=== PATIENT | female | born 1990 | race Caucasian/White ===

== ENCOUNTER → 2019-10-26 08:06 | Outpatient (BNVA) | payer BC, SELFPAY | PROVIDERS: Family Provider Family Medicine; Visit Provider Obstetrics & Gynecology | DX: R87.613 High grade squamous intraepithelial lesion on cytologic smear of cervix (HGSIL) (principal) | CPT/HCPCS: 88305 ==

== ENCOUNTER 2020-08-20 20:30 | Emergency (ER) | payer SELFPAY ==
--- NOTE | 2020-08-20 20:34 | XR_ITS ---
WS: [id number] Exam: XR ankle LT min 3V* [id number] Date/Time of Exam: 08/20/2020 8:34 PM Reason For Exam: left ankle pain s/p fall Comparison 08/20/2020. Again noted is a trimalleolar fracture of the left ankle with the medial subluxation of the tibia upo n the talar dome. No significant positional change. Soft tissue swelling about the ankle. XR/XR ankle LT min 3V* [id number] IMPRESSION: 1. Trimalleolar fracture or subluxation showing no positional change since the prior study.
[2020-08-20 20:56] VITALS: BP 124/84; PULSE 78; RESP 20; TEMP 36.8; O2SAT 99; BMI 42.0
--- NOTE | 2020-08-20 21:07 | W.ED.EXTPRO ---
HPI - Extremity Problem General: Chief complaint: Extremity Injury, Lower Stated complaint: FELL ON ICE/INJURED L ANKLE Time Seen by Provider: 08/20/20 20:34 Source: patient Mode of arrival: ambulatory Limitations: no limitations History of Present Illness: HPI Narrative: 30-year-old female patient presents to the emergency department with left ankle pain. She states prior to arrival, was walking in the yard when she slipped on wet snow, left ankle hyperflexion, top of my foot touched my levy , she reports not able to ambulate on the left ankle, denies left foot pain or other injuries. MD Complaint: extremity pain, extremity swelling and joint swelling Pain Consistency: constant Location: left and lower extremity Severity scale (1-10): 6 Quality: aching and constant Relieving factors: immobilization Exacerbating factors: range of motion, weight bearing and walking Associated symptoms: Reports no associated symptoms; Deny chest pain, fever(s) or rash Review of Systems General: Reports: 10 or more systems reviewed and unremarkable except in HPI and below Const: Denies: fever(s), chills or diaphoresis Eyes: Denies: blurry vision or eye redness ENMT: Denies: throat pain, dental pain or disequilibrium Card: Denies: chest pain, palpitations or irregular heart rhythm Resp: Denies: dyspnea, productive cough, non-productive cough or wheezing GI: Denies: abdominal pain, nausea or vomiting : Denies: difficulty voiding or dysuria Musc: Reports: joint pain, joint swelling and joint stiffness; Denies: neck pain or back pain Skin/Breast: Denies: rash or pruritus Neuro: Denies: headache(s), weakness in extremities or behavioral changes Psych: Denies: anxiety or depression Cisco/Lymph: Denies: easy bruising COUNTS INCLUDE 234 BEDS AT THE [facility] ED PFSH: Medical History (Updated 08/20/20 @ 22:28 by TENISHA Mckenzie) No significant past medical history Surgical History History of tonsillectomy and adenoidectomy Family History Mother Diabetes Hypercholesteremia Grandmother Uterine cancer maternal Family/Other Uterine cancer maternal Father Hypertension Grandfather Hypertension paternal Social History (Reviewed 08/20/20 @ 21:08 by ABEL Mckenzie Smoking and tobacco status: never smoked Alcohol intake: current Alcohol intake frequency: few times a month Female Reproductive History: Date of last menstrual period: 07/27/20 Physical Exam Const: COMMON NORMALS: no acute distress, patient oriented x3, no limitations, healthy appearing and alert GENERAL APPEARANCE: cooperative, well kempt, well developed and well hydrated; not ill appearing NUTRITIONAL APPEARANCE: overweight ORIENTATION/CONSCIOUSNESS: Yes awake, Yes oriented to person, Yes oriented to place and Yes oriented to time HENMT: COMMON NORMALS: normocephalic, atraumatic, EAC's normal, Normal external nose present and moist oral mucous membranes HEAD & SCALP: normocephalic and atraumatic FACE & SINUS: normal facial exam and face symmetric NOSE: Normal external nose present EXTERNAL AUDITORY CANAL: EAC's normal Eye: COMMON NORMALS: Equal, round and reactive pupils present, EOMs intact bilaterally and conjunctivae normal GENERAL EYE: appearance normal, both eyes and all related structures PERIORBITAL: periorbital findings normal EYELID: eyelids normal CONJUNCTIVA: Yes conjunctivae normal PUPIL: Yes Equal, round and reactive pupils present Neck/C-Spine: COMMON NORMALS: full ROM, no lymphadenopathy and supple GENERAL: Yes normal visual inspection and Yes trachea midline CERVICAL SPINE: Yes cervical ROM normal, No pain with cervical ROM, No Cervical spine tenderness and No Paracervical muscle tenderness Lymph: LYMPHATIC: no lymphadenopathy noted Chest: COMMONS NORMALS: normal inspection of the chest and normal palpation of entire chest wall CHEST: No localized rib tenderness with anteroposterior compression Resp: COMMON NORMALS: normal respiratory effort, No retractions, No use of accessory muscles and clear to auscultation bilaterally EFFORT & INSPECTION: Yes able to speak in complete sentences and Yes symmetric chest movement AUSCULTATION: clear to auscultation bilaterally Cardio: COMMON NORMALS: regular rate, regular rhythm, S1 normal heart sound present, S2 normal heart sound present and Peripheral pulses 2+ throughout RATE: regular rate RHYTHM: regular rhythm HEART SOUNDS: S1 normal heart sound present and S2 normal heart sound present PERIPHERAL PULSES: Peripheral pulses 2+ throughout GI: COMMON NORMALS: Normal to inspection, nondistended, normoactive bowel sounds present, Soft to palpation and non-tender INSPECTION: Yes normal to inspection PALPATION: Yes Soft to palpation : COMMON NORMALS: Yes no CVA tenderness BLADDER/KIDNEY EXAM: Yes no CVA tenderness Back/Pelvis: COMMON NORMALS: no CVA tenderness, thoracic and lumbar spine normal to inspection, no thoracic nor lumbar tenderness, thoraco-lumbar ROM normal and straight leg raise negative bilaterally Extremity: COMMON NORMALS: normal to inspection, capillary refill normal, no clubbing, cyanosis or edema, no calf tenderness and no pedal edema GENERAL: Yes normal exam except as noted LEFT LOWER EXTREMITY: Yes ankle joint Left ankle: Yes inspection (deformity of the left medial malleolus, edema and swelling of the joint), Yes palpation (pain of the left medial malleolus), Yes ROM (dorsi-flexion/extension limited due to pain, not able to invert) and Yes neurovascular exam (distally intact) Neuro: COMMON NORMALS: patient oriented x3 and no focal motor deficits SENSORIUM/ORIENTATION: Yes alert, Yes oriented to person, Yes oriented to place and Yes oriented to time Psych: COMMON NORMALS: mental status grossly normal, Normal thought process present and cooperative APPEARANCE: Yes well kempt ACTIVITY/MOTOR BEHAVIOR: Yes appropriate eye contact THOUGHT PROCESS: Normal thought process present Skin: COMMON NORMALS: no rashes or lesions noted and turgor normal GENERAL SKIN EXAM: no rashes or lesions noted and turgor normal Procedures Orthopedic Splinting/Casting Injury #1: Side: left Lower Extremity Injury Location: lower leg, ankle and foot Lower Extremity Immobilizer: posterior splint, stirrup splint and Arnoldo wrap Other Orthopedic Equipment: crutches Additional Comments: n/v distally intact w/o deficit Course Vital Signs: Vital signs: Vital Signs Temperature 98.2 F 08/20/20 20:56 Pulse Rate 71 08/20/20 22:49 Respiratory Rate 20 H 08/20/20 21:53 Blood Pressure 125/77 08/20/20 22:49 Pulse Oximetry 97 08/20/20 22:49 MDM - Extremity (Nontraumatic) MDM Narrative: Medical decision making narrative: 30-year-old female patient presents to the emergency department with trimalleolar fracture of the left lower extremity. Case was discussed as well as radiology films reviewed with Dr. Bernard. Recommendation to administer fentanyl and Zofran so appropriate positioning of the left ankle with splinting can be completed with decreased pain. Splint was applied with ankle/foot at 90 degrees, she was able to tolerate positioning and splint placement. Social service referral for orthopedic management placed. She was advised no weightbearing, prescription of hydrocodone signed by Dr. Bernard. Discharge Plan Discharge Patient Disposition: Home Clinical Impression: Fall Qualifiers: Encounter type: initial encounter Qualified Code(s): W19.XXXA - Unspecified fall, initial encounter Trimalleolar fracture of ankle, closed Qualifiers: Encounter type: initial encounter Laterality: left Qualified Code(s): S82.852A - Displaced trimalleolar fracture of left lower leg, initial encounter for closed fracture Condition: Stable Prescriptions: New hydrocodone-acetaminophen 5-325 mg tablet 1 tab PO Q4H PRN (Reason: pain) Qty: 10 RF: 0 No Action norethindrone (contraceptive) [Ortho Micronor] 0.35 mg tablet 0.35 mg PO DAILY RF: 0 Discharge Orders: Discharge ED (Routine); Ordered 08/20/20 Ordered By: Nivia Heredia Referrals: Jas Meade MD [Primary Care Provider] - Discharge Diet: Usual diet Discharge Activity: Limit activity as instructed Patient Instructions: Ankle Fracture (ED), Crutch Instructions (ED), Splint Care (ED), Opioid Safety Activity Restrictions/Additional Instructions: Keep left lower extremity elevated as much as possible, this will help with swelling and pain Take pain medication with food to avoid stomach upset Pain medication prescribed may cause constipation, stool softener/laxative may be needed accounting advisory services manager will be contacting you with follow-up appointment with orthopedic specialty Keep ice, cool compresses to the left lower extremity to help reduce swelling No weightbearing on the left lower extremity until cleared by orthopedic specialty Stand Alone Forms: Work/School Release Coding Level of Care Code ED It Sales Executive for Rafat Fwd Exam Comprehensive
[2020-08-20] MEDS: HYDROcodone-acetaminophen 5-325 mg Tablet 1 TAB PO ×2 (21:23→22:39)
[2020-08-20 21:53] VITALS: RESP 20; O2SAT 98
[2020-08-20] MEDS: fentaNYL 50 mcg/mL INJ 2mL 100 MCG IVP (21:53)
[2020-08-20] MEDS: ondansetron 2 mg/ML SDV 2 mL 4 MG IVP (21:54)
[2020-08-20 22:46] VITALS: BP 125/77; PULSE 72; O2SAT 98
[2020-08-20 22:49] VITALS: BP 125/77; PULSE 71; O2SAT 97
--- NOTE | 2020-08-21 08:59 | DCPLANNER ---
[employer] had message to schedule a follow up appointment for patient with ortho. unit manager [employer] called the ortho clinic, spoke with Gayathri, gave clinic patients information. unit manager [employer] was told that patients information would be printed and reviewed. Clinic will call patient with appointment information.
--- NOTE | 2020-08-22 07:49 | DCPLANNER ---
Patient has a follow up appointment scheduled for Saturday, August 22, 2020 at 2:[address] Ordaz at ortho. Clinic will call patient with appointment information.
--- NOTE | 2020-09-04 08:10 | DCPLANNER ---
Patient had a follow up appointment scheduled for 08.22.[address] Ordaz at ortho - patient attended appointment.
== END 2020-08-20 22:51 | disposition home or self-care (01) ==
PROVIDERS: Emergency Provider Nurse Practitioner Family; PCP Family Medicine
DX: S82.852A Displaced trimalleolar fracture of left lower leg, initial encounter for closed fracture (principal); W00.0XXA Fall on same level due to ice and snow, initial encounter
CPT/HCPCS: 29515; 73610; 96374; 96375; 99283; E0114; J2405; J3010

== ENCOUNTER → 2020-08-22 15:15 | Outpatient (BNVA) | payer OTHER, SELFPAY | PROVIDERS: PCP Family Medicine; Visit Provider Orthopaedic Surgery | DX: Z11.52 Encounter for screening for COVID-19 (principal); S82.852D Displaced trimalleolar fracture of left lower leg, subsequent encounter for closed fracture with routine healing; X58.XXXD Exposure to other specified factors, subsequent encounter | CPT/HCPCS: 87635 ==

== ENCOUNTER 2020-08-25 06:00 | Day surgery (SDC) | payer SELFPAY ==
[2020-08-24 14:06] VITALS: BMI 42.0
[2020-08-25] VITALS (9 sets, daily range): BP systolic 110–133; BP diastolic 74–91; PULSE 76–94; RESP 12–20; TEMP 36.1–36.7; O2SAT 96–98
--- NOTE | 2020-08-25 | XR_ITS ---
WS: [id number] Exam: XR ankle LT min 3V* [id number] Date/Time of Exam: 08/25/2020 12:00 AM Reason For Exam: ORIF LEFT ANKLE Intraoperative C-arm images of the left ankle in the lateral and AP projections are submitted for demetri luation. There is plate and screw fixation involving a fracture of the lower fibula that is stabilized in sati sfactory alignment for healing. 2 screws also stabilize a fracture of the medial malleolus in good al ignment. A posterior tibial shelf fracture is partially visualized and does not appear to comprise a significant part of the articulating surface. Postoperative changes in the adjacent soft tissues. XR/XR ankle LT min 3V* [id number] IMPRESSION: 1. Satisfactory internal orthopedic fixation involving fractures of the medial malleolus and distal fibula. 2. Small partially visualized posterior tibial shelf fracture.
--- NOTE | 2020-08-25 | SCC_ITS ---
Procedure Done: Open reduction internal fixation of left trimalleolar ankle fracture 50.3 seconds of fluoroscopic guidance, for a cumulative dose of 1.36 mGy, was provided to Dr. Ordaz by the radiology department. C-arm images of the LEFT ankle were saved for the patient's permanent record. [facility]
--- NOTE | 2020-08-25 06:21 | PC.NURSE ---
PT STATED SHE HAS TAKEN KEFLEX WITH NO ALLERGIC REACTION.
--- NOTE | 2020-08-25 06:33 | ANES.PREANE2 ---
Pre-Anesthetic Assessment Pre-Anesthetic Assessment: Height/Weight: Height 1.63 m Weight 111.13 kg Temp Pulse Resp BP Pulse Ox 97 F L 87 18 122/86 97 08/25/20 06:19 08/25/20 06:19 08/25/20 06:19 08/25/20 06:19 08/25/20 06:19 Preop Diagnosis: left trimallelar ankle fracture Proposed Procedure: Operation Date: 08/25/20 07:00 Proposed Procedures p ORIF left Ankle s82.853a [id number](Left) - Dylan Ordaz, DO Was Beta Merrill taken within 24 hours: N/A Last intake: Intake Last Liquid Date 08/24/20 Last Liquid Time 21:00 Last Solid Date 08/24/20 Last Solid Time 21:00 Social: Social History: No alcohol and No tobacco Exam: Pre-Anes Outpt Exam: alert, oriented x 3, clear to auscultation bilaterally and regular rate & rhythm Airway: Submandibular: WNL Cervical ROM: WNL MP: 2 Dentition: Full Metabolic: Metabolic: Morbid obesity Anesthetic Plan: ASA status: 2 Anesthesia: General Risk of > 500 ml blood loss (7ml/kg in children): No PFSH Anesthesia PFSH: Medical History No significant past medical history Surgical History History of tonsillectomy and adenoidectomy Family History Mother Diabetes Hypercholesteremia Grandmother Uterine cancer maternal Family/Other Uterine cancer maternal Father Hypertension Grandfather Hypertension paternal Social History Smoking and tobacco status: never smoked Alcohol intake: current Alcohol intake frequency: few times a month Female Reproductive History: Date of last menstrual period: 07/27/20 Data Anesthesia Cardiac Studies: No Data to Display
--- NOTE | 2020-08-25 06:42 | W.PM.OPSUD ---
Surgery/Procedure H&P Update DATE OF PROCEDURE: August 25, 2020 DATE H&P PERFORMED: 08/22/20 H&P UPDATE INFORMATION: I have reviewed H&P completed within last 30 days, I have examined patient prior to procedure and No changes to prior documentation PREOP DIAGNOSIS: left trimallelar ankle fracture PLANNED PROCEDURE: Operation Date: 08/25/20 07:00 Proposed Procedures p ORIF left Ankle s82.853a [id number](Left) - Dylan Ordaz DO
[2020-08-25] MEDS: sodium chloride 0.9% 1,000 ML 30 ML IV (06:45)
[2020-08-25] MEDS: clindamycin 600 MG/50 ML PREMIX 100 MG IV (07:00)
[2020-08-25] MEDS: fentaNYL 50 mcg/mL INJ 2mL IVP ×2 (07:05→09:05)
--- NOTE | 2020-08-25 08:20 | P.OP_ITS ---
Operative Report Date of procedure: August 25, 2020 Pre-op Diagnosis: left trimallelar ankle fracture Post-op diagnosis: same Procedure Done: Open reduction internal fixation of left trimalleolar ankle fracture Anesthesia: General Estimated blood loss (mL): 5 Condition: stable Disposition: PACU Procedure: Patient was brought to the operative suite placed in the supine position all areas impingement were well-padded. Patient was prepped and draped in normal sterile fashion. Tourniquet was applied. Skin incision made over the fibula. Fracture was reduced with [id number] reduction clamps. And then a 5 hole posterior plate was placed 2 screws proximal to screws distal to the frac ture. Next 10 was brought to the medial malleolus. Skin sutures made fracture was reduced [id number] reduction clamp was used to hold the reduction. Drill holes made into partially-threaded cancellous screws were made. Wounds were irrigated and closed with Vicryl and nylon suture sterile patient placed in a posterior splint transferred to the PACU in stable condition.
--- NOTE | 2020-08-25 08:57 | P.PCN_ITS ---
PACU note PACU note: VSS, Good respiratory effort, report to COLORED LEATHER SETTER Post-Anesthesia Exam: awake
--- NOTE | 2020-08-25 08:57 | PM.PACU ---
PACU note PACU note: VSS, Good respiratory effort, report to HEREDITARY CANCER PROGRAM COORDINATOR Post-Anesthesia Exam: awake
--- NOTE | 2020-08-25 09:04 | SUR.PHASEI ---
0904- ORAL AIRWAY REMOVED, SIMPLE MASK AT 6LPM SAT 96%
--- NOTE | 2020-08-25 09:50 | ANES.PROC ---
Anesthesia Procedures Procedure/Date: 08/25/20 Nerve Block ^: Nerve Block 1: Main Anesthesia: general anesthesia Time Out Performed: Yes Consent: requested by attending/covering physician, from patient, risks and benefits reviewed and patient agrees to proceed Nerve block location: popliteal (left) Anesthesia monitors applied: pulse oximetry, EKG, BP cuff and oxygen Nerve block position: lateral (right) Anesthetic Used: ropivicaine 0.5% Amount of anesthesia used (mL): 30 Ultrasound used to: recognize landmarks Nerve Stimulator Used?: No Interscalene/Femoral BLK: 4 stimuplex 21 g needle used for position and inplane approach Injection: neg aspiration of heme Patient Tolerated Procedure: well Complications: none
--- NOTE | 2020-08-25 09:50 | ANE.PACU2 ---
Inpatient post-anesthesia follow up: Airway intact: Yes Vital signs: Temperature 98.0 F Pulse Rate 76 Respiratory Rate 20 Blood Pressure 133/78 Pulse Oximetry 96 Oxygen Delivery Me thod Room Air Oxygen Flow Rate 6 Fraction of Inspir ed Oxygen Hydration adequate: Yes Nausea and vomiting: No Pain level: 9 Mental status: Baseline Additional Comments: Hurting quite a bit, performed pop blk postop.
--- NOTE | 2020-08-25 09:51 | PC.NURSE ---
nerve block done.
[2020-08-25] MEDS: ondansetron 2 mg/ML SDV 2 mL 4 MG IVP (10:21)
== END 2020-08-25 10:56 | disposition home or self-care (01) ==
PROVIDERS: PCP Family Medicine; Visit Provider Orthopaedic Surgery
PROC: (CPT 27822; principal; 2020-08-25 07:00)
DX: S82.852A Displaced trimalleolar fracture of left lower leg, initial encounter for closed fracture (principal); X50.1XXA Overexertion from prolonged static or awkward postures, initial encounter; E66.01 Morbid (severe) obesity due to excess calories; Z68.41 Body mass index [BMI] 40.0-44.9, adult
CPT/HCPCS: 27822; 64450; 73610; 76000; 76942; 96374; 96375; C1713; J2405; J2704; J2795; J3010; J3490; J7030

== ENCOUNTER 2020-09-07 11:00 | Outpatient (CLI) | payer SELFPAY | END 2020-09-07 11:01 | disposition home or self-care (01) | LOC: SPT 09-08 07:29 | PROVIDERS: PCP Family Medicine; Visit Provider Orthopaedic Surgery | DX: Z47.89 Encounter for other orthopedic aftercare (principal) | CPT/HCPCS: 97760; L4361 ==

== ENCOUNTER → 2020-10-05 09:56 | Outpatient (BNVA) | payer MEDICAID, SELFPAY | PROVIDERS: PCP Family Medicine; Visit Provider Orthopaedic Surgery | DX: S82.852D Displaced trimalleolar fracture of left lower leg, subsequent encounter for closed fracture with routine healing (principal); Z48.89 Encounter for other specified surgical aftercare; W19.XXXD Unspecified fall, subsequent encounter | CPT/HCPCS: 73610 ==

== ENCOUNTER 2020-10-11 10:11 | Outpatient (RCR) | payer MEDICAID, SELFPAY | END 2020-10-27 23:59 | disposition home or self-care (01) | LOC: SPT 10:11 | PROVIDERS: PCP Family Medicine; Referring Provider Orthopaedic Surgery; Visit Provider Orthopaedic Surgery | DX: Z47.89 Encounter for other orthopedic aftercare (principal) | CPT/HCPCS: 97110; 97161 ==

== ENCOUNTER 2020-10-28 06:00 | Outpatient (RCR) | payer MEDICAID, SELFPAY | END 2020-11-27 23:59 | disposition home or self-care (01) | LOC: SPT 06:00 | PROVIDERS: PCP Family Medicine; Referring Provider Orthopaedic Surgery; Visit Provider Orthopaedic Surgery | DX: Z47.89 Encounter for other orthopedic aftercare (principal) | CPT/HCPCS: 97110 ==

== ENCOUNTER → 2020-11-03 11:14 | Outpatient (BNVA) | payer MEDICAID, SELFPAY | PROVIDERS: PCP Family Medicine; Visit Provider Obstetrics & Gynecology | DX: R87.613 High grade squamous intraepithelial lesion on cytologic smear of cervix (HGSIL) (principal) | CPT/HCPCS: 81025; 88305 ==

== ENCOUNTER → 2020-11-21 09:55 | Outpatient (BNVA) | payer MEDICAID, SELFPAY | PROVIDERS: PCP Family Medicine; Visit Provider Orthopaedic Surgery | DX: S82.852A Displaced trimalleolar fracture of left lower leg, initial encounter for closed fracture (principal); X58.XXXA Exposure to other specified factors, initial encounter | CPT/HCPCS: 73610 ==

== ENCOUNTER 2020-11-28 06:00 | Outpatient (RCR) | payer MEDICAID, SELFPAY | END 2020-12-27 23:59 | disposition home or self-care (01) | LOC: SPT 06:00 | PROVIDERS: PCP Family Medicine; Referring Provider Orthopaedic Surgery; Visit Provider Orthopaedic Surgery | DX: Z47.89 Encounter for other orthopedic aftercare (principal) | CPT/HCPCS: 97110 ==

== ENCOUNTER 2020-12-28 06:00 | Outpatient (RCR) | payer MEDICAID, SELFPAY | END 2021-01-27 23:59 | disposition home or self-care (01) | LOC: SPT 06:00 | PROVIDERS: PCP Family Medicine; Referring Provider Orthopaedic Surgery; Visit Provider Orthopaedic Surgery | DX: S82.852A Displaced trimalleolar fracture of left lower leg, initial encounter for closed fracture (principal); X58.XXXA Exposure to other specified factors, initial encounter | CPT/HCPCS: 97110 ==

== ENCOUNTER → 2021-01-04 08:45 | Outpatient (BNVA) | payer MEDICAID, SELFPAY | PROVIDERS: PCP Family Medicine; Visit Provider Orthopaedic Surgery | DX: S82.852A Displaced trimalleolar fracture of left lower leg, initial encounter for closed fracture (principal); X58.XXXA Exposure to other specified factors, initial encounter | CPT/HCPCS: 73610 ==

== ENCOUNTER 2021-01-28 06:00 | Outpatient (RCR) | payer MEDICAID, SELFPAY | END 2021-02-27 23:59 | disposition home or self-care (01) | LOC: SPT 06:00 | PROVIDERS: PCP Family Medicine; Referring Provider Orthopaedic Surgery; Visit Provider Orthopaedic Surgery | DX: S82.852D Displaced trimalleolar fracture of left lower leg, subsequent encounter for closed fracture with routine healing (principal); X58.XXXD Exposure to other specified factors, subsequent encounter | CPT/HCPCS: 97110 ==

== ENCOUNTER → 2021-02-19 10:17 | Outpatient (BNVA) | payer MEDICAID, SELFPAY | PROVIDERS: PCP Family Medicine; Visit Provider Family Medicine | DX: Z20.828 Contact with and (suspected) exposure to other viral communicable diseases (principal) | CPT/HCPCS: 87426; 87635 ==

== ENCOUNTER 2021-08-22 18:40 | Emergency (ER) | payer OTHER, MEDICAID, SELFPAY ==
[2021-08-22 18:44] VITALS: BP 142/92; PULSE 91; RESP 18; TEMP 36.8; O2SAT 98; BMI 43.9
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
[2021-08-22] MEDS: sodium chloride 0.9% 1,000 ML 999 ML IV (19:15)
[2021-08-22 19:32] LABS: Basophils % 0.3 %; Eosinophils # 0.3 10^3/uL (0.0-0.8); Eosinophils % 2.3 %; Hematocrit 37.2 % (37.0-47.0); Hemoglobin 12.5 g/dL (11.5-15.3); Lymphocytes # 2.6 10^3/uL (0.8-4.8); Lymphocytes % 18.5 %; Mean Corpuscular HGB Conc 33.6 g/dL (30.0-36.0); Mean Corpuscular Hemoglobin 27.7 pg (28.0-34.0); Mean Corpuscular Volume 82.5 fl (81-99); Mean Platelet Volume 11.1 fL (7.4-10.4); Monocytes # 0.8 10^3/uL (0.2-0.9); Neutrophils % 72.4 %; Nucleated Red Blood Cells % 0 %; Platelet Count 248 10^3/cmm (130-400); Red Blood Count 4.51 10^6/uL (4.1-5.3); Red Cell Distribution Width 14.2 % (12.1-15.1); White Blood Count 14.1 10^3/uL (4.0-10.0)
[2021-08-22 19:35] VITALS: BP 138/82; PULSE 87; RESP 18; TEMP 36.8; O2SAT 98
[2021-08-22 20:09] LABS: Add Urine Microscopic? YES; Bilirubin Urine Neg (Negative); Blood Urine 3+ (Negative); Glucose Urine UA Norm (Normal); Ketones Urine Negative (Negative); Leukocyte Esterase Urine Trace (Negative); Nitrate Urine Negative (Negative); Protein Urine 1+ (Negative); Specific Gravity, Urine 1.015 (1.005-1.030); Urine Appearance Cloudy (CLEAR); Urine Color Red (Yellow); Urobilinogen Urine 1 mg/dL (Negative); pH Urine 7 (5-7)
[2021-08-22 20:10] LABS: Alanine Aminotransferase 14 U/L (0-33); Alkaline Phosphatase 78 IU/L (35-105); Anion Gap 13.9 (5-19); Aspartate Amino Transferase 14 U/L (0-32); Blood Urea Nitrogen 9 mg/dL (6-20); Calcium 9.1 mg/dL (8.5-10.5); Carbon Dioxide 21 mmol/L (22-29); Chloride 103 mmol/L (98-107); Globulin 3.1 g/dL (1.3-4.6); Glucose 98 mg/dL (65-115); Lipase 28 U/L (13-60); Osmolality Calculated 277 mOsm/kg (285-295); Potassium 3.9 mmol/L (3.5-5.1); Sodium 134 mmol/L (136-145); Total Bilirubin 0.2 mg/dL (0.15-1.2); Total Protein 7.1 g/dL (6.6-8.7)
[2021-08-22 20:10] LABS: Add Urine Culture? Yes; RBC Urine TOO NUMEROUS TO CNT /hpf (0-2); Squamous Epithelial Cell Urine RARE /hpf (0-5); WBC Urine RARE /hpf (0-5)
[2021-08-22 20:27] VITALS: BP 144/86; PULSE 85; RESP 18; TEMP 36.8; O2SAT 98
[2021-08-22 20:38] VITALS: BP 144/86; PULSE 85; RESP 18; TEMP 36.8; O2SAT 98
== END 2021-08-22 20:40 | disposition home or self-care (01) ==
PROVIDERS: Emergency Provider Emergency Medicine; PCP Family Medicine
DX: O20.0 Threatened abortion (principal); Z3A.13 13 weeks gestation of pregnancy
CPT/HCPCS: 80053; 81001; 83690; 85025; 86850; 86900; 87086; 96360; 99284; J7030

== ENCOUNTER 2022-02-03 12:24 | Emergency (ER) | payer OTHER, MEDICAID, SELFPAY ==
[2022-02-03] VITALS (7 sets, daily range): BP systolic 103–131; BP diastolic 64–94; PULSE 92; RESP 22; TEMP 36.9; O2SAT 97–99; BMI 44.1
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
[2022-02-03 13:01] LABS: Basophils % 0.2 %; Eosinophils # 0.2 10^3/uL (0.0-0.8); Eosinophils % 1.7 %; Hematocrit 32.8 % (37.0-47.0); Hemoglobin 10.5 g/dL (11.5-15.3); Lymphocytes # 2.5 10^3/uL (0.8-4.8); Lymphocytes % 19.1 %; Mean Corpuscular Hemoglobin 25.5 pg (28.0-34.0); Mean Corpuscular Volume 79.8 fl (81-99); Mean Platelet Volume 11.3 fL (7.4-10.4); Monocytes # 0.8 10^3/uL (0.2-0.9); Monocytes % 6.1 %; Neutrophils # 9.44 10^3/uL (1.8-7.7); Neutrophils % 71.8 %; Nucleated Red Blood Cells % 0 %; Platelet Count 273 10^3/cmm (130-400); Red Blood Count 4.11 10^6/uL (4.1-5.3); Red Cell Distribution Width 14.9 % (12.1-15.1); White Blood Count 13.2 10^3/uL (4.0-10.0)
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
[2022-02-03 13:37] LABS: Anion Gap 17.9 (5-19); Blood Urea Nitrogen 8 mg/dL (6-20); Carbon Dioxide 19 mmol/L (22-29); Chloride 103 mmol/L (98-107); Glomerular Filtration Rate 115.9 mL/min (90-130); Glucose 114 mg/dL (65-115); Osmolality Calculated 281 mOsm/kg (285-295); Potassium 3.9 mmol/L (3.5-5.1); Sodium 136 mmol/L (136-145)
--- NOTE | 2022-02-03 14:38 | PC.NURSE ---
Report called to Pita in OB
== END 2022-02-03 14:35 | disposition home or self-care (01) ==
PROVIDERS: Emergency Provider Family Medicine; PCP Family Medicine
DX: O9A.213 Injury, poisoning and certain other consequences of external causes complicating pregnancy, third trimester (principal); S96.912A Strain of unspecified muscle and tendon at ankle and foot level, left foot, initial encounter; Z3A.37 37 weeks gestation of pregnancy; V89.2XXA Person injured in unspecified motor-vehicle accident, traffic, initial encounter
CPT/HCPCS: 72040; 72170; 73562; 73600; 80048; 85025; 99284

== ENCOUNTER 2022-02-03 14:37 | Outpatient (CLI) | payer OTHER, MEDICAID, SELFPAY ==
[2022-02-03] VITALS (9 sets, daily range): BP systolic 104–131; BP diastolic 55–82; PULSE 67–90; RESP 16; BMI 44.1
[2022-02-03] MEDS: HYDROcodone-acetaminophen 5-325 mg Tablet 1 TAB PO (15:37)
== END 2022-02-03 17:46 | disposition home or self-care (01) ==
LOC: OPOB 14:37 → OBGYN 14:38
PROVIDERS: PCP Family Medicine; Visit Provider Family Medicine
DX: O26.899 Other specified pregnancy related conditions, unspecified trimester (principal); Z3A.00 Weeks of gestation of pregnancy not specified
CPT/HCPCS: 59025; 99211

== ENCOUNTER 2022-02-07 08:53 | Emergency (ER) | payer OTHER, MEDICAID, SELFPAY ==
[2022-02-07 09:07] VITALS: BP 124/80; PULSE 84; RESP 20; TEMP 36.8; O2SAT 96; BMI 44.2
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
[2022-02-07 09:44] VITALS: BP 137/84; PULSE 83; RESP 18; O2SAT 98
[2022-02-07 11:00] VITALS: BP 146/90
== END 2022-02-07 11:22 | disposition home or self-care (01) ==
PROVIDERS: Emergency Provider Physician Assistant; PCP Family Medicine
DX: O9A.213 Injury, poisoning and certain other consequences of external causes complicating pregnancy, third trimester (principal); S22.42XA Multiple fractures of ribs, left side, initial encounter for closed fracture; Z3A.36 36 weeks gestation of pregnancy; V89.2XXA Person injured in unspecified motor-vehicle accident, traffic, initial encounter
CPT/HCPCS: 71101; 99283

== ENCOUNTER 2022-02-18 16:08 | Outpatient (CLI) | payer OTHER, MEDICAID, SELFPAY ==
[2022-02-18] VITALS (8 sets, daily range): BP systolic 124–139; BP diastolic 70–82; PULSE 67–83; TEMP 35.7; BMI 45.1
[2022-02-18 17:14] LABS: Basophils % 0.3 %; Eosinophils # 0.1 10^3/uL (0.0-0.8); Eosinophils % 1.1 %; Hemoglobin 9.7 g/dL (11.5-15.3); Lymphocytes # 1.6 10^3/uL (0.8-4.8); Lymphocytes % 14.7 %; Mean Corpuscular HGB Conc 31.3 g/dL (30.0-36.0); Mean Corpuscular Hemoglobin 25.3 pg (28.0-34.0); Mean Corpuscular Volume 80.9 fl (81-99); Mean Platelet Volume 10.8 fL (7.4-10.4); Monocytes # 0.9 10^3/uL (0.2-0.9); Neutrophils # 8.08 10^3/uL (1.8-7.7); Neutrophils % 75.3 %; Nucleated Red Blood Cells % 0 %; Platelet Count 276 10^3/cmm (130-400); Red Blood Count 3.83 10^6/uL (4.1-5.3); Red Cell Distribution Width 15.6 % (12.1-15.1); White Blood Count 10.7 10^3/uL (4.0-10.0)
[2022-02-18 17:42] LABS: Alanine Aminotransferase 12 U/L (0-33); Albumin Level 3.4 g/dL (3.5-5.2); Alkaline Phosphatase 183 U/L (35-105); Anion Gap 17.8 (5-19); Aspartate Amino Transferase 19 U/L (0-32); Blood Urea Nitrogen 11 mg/dL (6-20); Calcium 8.8 mg/dL (8.5-10.5); Carbon Dioxide 22 mmol/L (22-29); Chloride 104 mmol/L (98-107); Globulin 3.1 g/dL (1.3-4.6); Glomerular Filtration Rate 83.1 mL/min (90-130); Glucose 83 mg/dL (65-115); Osmolality Calculated 287 mOsm/kg (285-295); Potassium 4.8 mmol/L (3.5-5.1); Sodium 139 mmol/L (136-145); Total Bilirubin 0.3 mg/dL (0.15-1.2); Total Protein 6.5 g/dL (6.6-8.7)
== END 2022-02-18 18:16 | disposition home or self-care (01) ==
LOC: OPOB 16:08 → OBGYN 16:09
PROVIDERS: PCP Family Medicine; Visit Provider Family Medicine
DX: O26.899 Other specified pregnancy related conditions, unspecified trimester (principal); Z3A.00 Weeks of gestation of pregnancy not specified; R42 Dizziness and giddiness
CPT/HCPCS: 36415; 59025; 80053; 85025; 99211

== ENCOUNTER 2022-02-25 05:01 | Inpatient (IN) | payer OTHER, MEDICAID, SELFPAY ==
[2022-02-25] VITALS (77 sets, daily range): BP systolic 120–177; BP diastolic 69–110; PULSE 56–85; RESP 14–18; TEMP 36.6–37.1; O2SAT 92–100; BMI 46.0
[2022-02-25 02:59] LABS: Basophils % 0.3 %; Eosinophils # 0.2 10^3/uL (0.0-0.8); Eosinophils % 1.5 %; Hematocrit 32.1 % (37.0-47.0); Lymphocytes # 2.5 10^3/uL (0.8-4.8); Lymphocytes % 21.6 %; Mean Corpuscular HGB Conc 31.2 g/dL (30.0-36.0); Mean Corpuscular Hemoglobin 24.8 pg (28.0-34.0); Mean Corpuscular Volume 79.7 fl (81-99); Mean Platelet Volume 11.7 fL (7.4-10.4); Monocytes # 0.9 10^3/uL (0.2-0.9); Monocytes % 7.6 %; Neutrophils # 7.93 10^3/uL (1.8-7.7); Neutrophils % 68.6 %; Nucleated Red Blood Cells % 0 %; Platelet Count 295 10^3/cmm (130-400); Red Blood Count 4.03 10^6/uL (4.1-5.3); Red Cell Distribution Width 15.9 % (12.1-15.1); White Blood Count 11.6 10^3/uL (4.0-10.0)
[2022-02-25] MEDS: lactated ringers 1,000 ML 999 ML IV ×2 (03:24→04:56)
[2022-02-25] MEDS: oxytocin 30 UNIT/500 ML BAG IV (03:26)
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
--- NOTE | 2022-02-25 05:14 | P.ANES_ITS ---
Documented by User: Kyle Jara CRNA 02/25/22 05:15 Anesthesia Procedures Procedure/Date: 02/25/22 epidural Procedure Narrative: epidural complete, bolus given, epidural pump initiated with COMPRESSED GAS EQUIPMENT MECHANIC education given, vitals taken during procedure using OBIX system and satisfactory throughout, patient admits to decrease pain, report of procedure to OB RN Epidural: Time Out Performed: Yes Consents Signed: Procedure Consent Consent: requested by attending/covering physician, from patient, risks and benefits reviewed and patient agrees to proceed Lumbar Level: L3-L4 Epidural position: sitting Epidural procedure: sterile prep of area, 1% lido josiah to numb the area (3 mL), 18 g needle, negative for paresthesia passed, neg for paresthesia, test dose given, 1.5% xylocaine 1:200k epi (5 mL), 0.2% Ropivacaine bolus ml (5 mL), placed PCEA, no systemic response, sterile dressing applied, L.U.D. no apparent complications and 0.2% Ropiavacaine @ mls/hr (13 mL/hr) Documented by User: Lukasz Pacheco DO 02/26/22 16:22 Anesthesia Procedures Procedure/Date: 02/26/22
[2022-02-25] MEDS: dextrose 5%-lactated ringers 1,000 ML 125 ML IV (05:52)
[2022-02-25] MEDS: ondansetron 2 mg/ML SDV 2 mL 4 MG IVP (05:54)
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
--- NOTE | 2022-02-25 07:23 | P.PCNOB_ITS ---
Delivery Note: Date of delivery: February 25, 2022 Pre-delivery diagnoses: 31-year-old 2 at 39 weeks and 5 days estimated gestational age Post- delivery diagnoses: Status post spontaneous vaginal delivery Procedure: Spontaneous vaginal delivery Delivering Physician: Jas Meade Estimated blood loss (mL): 150 Pre-Delivery Course: The patient presented to the hospital and was found to be 5 cm dilated. She was placed on Pitocin. An epidural was placed. Spontaneous rupture of membranes occurred. She progressed to complete without difficulty. Delivery: DELIVERY: The patient progressed to complete without difficulty. She delivered a male with a weight of 8 pounds 5 ounces with Apgars of 6, 9. The baby was delivered from the MOJGAN position and placed on the mother's abdomen. Initially, the baby was stunned, but responded appropriately to stimulation. The cord was then clamped and cut 1 minute after delivery. There was no nuchal cord x1 which was easily reduced before delivery of the body. There was no meconium. The placenta and 3 vessel cord were delivered intact shortly thereafter. The perineum and vaginal vault were carefully examined. The patient was noted to have a right anterior vaginal wall laceration that did not require repair. Both the mother and the baby were in stable condition. Post-Delivery Status: Good History History History 1 Term 1 0 Miscarriages/Ectopic 0 Living Children 1 A&P Assessment and plan (1) Spontaneous vaginal delivery: I anticipate routine care. If she does well, she will be discharged home tomorrow. Status: Acute Coding Level of Care Code Acute Construction Project Administrator for Chg Fwd Diagnoses Spontaneous vaginal delivery O80
[2022-02-25] MEDS: HYDROcodone-acetaminophen 5-325 mg Tablet PO ×2 (07:55→17:29)
[2022-02-25] MEDS: ibuprofen 800 mg tablet PO ×2 (12:31→21:33)
[2022-02-25] MEDS: docusate sodium 100 mg Capsule PO ×2 (12:31→21:33)
[2022-02-25] MEDS: prenatal vitamin Capsule 1 CAP PO (12:31)
[2022-02-25 20:10] LABS: Hemoglobin 9.5 g/dL (11.5-15.3); Mean Corpuscular HGB Conc 31.7 g/dL (30.0-36.0); Mean Corpuscular Hemoglobin 25.4 pg (28.0-34.0); Mean Corpuscular Volume 80.2 fl (81-99); Mean Platelet Volume 10.9 fL (7.4-10.4); Platelet Count 244 10^3/cmm (130-400); Red Blood Count 3.74 10^6/uL (4.1-5.3); Red Cell Distribution Width 15.8 % (12.1-15.1); White Blood Count 12.5 10^3/uL (4.0-10.0)
[2022-02-25] MEDS: lanolin oint 7 gm 1 APPLIC TOPICAL (21:55)
[2022-02-25] MEDS: benzocaine-menthol 78 gm Canister 1 SPRAY TOPICAL (21:56)
[2022-02-26] MEDS: HYDROcodone-acetaminophen 5-325 mg Tablet PO (03:41)
[2022-02-26 04:50] VITALS: BP 142/81; PULSE 60; RESP 16
--- NOTE | 2022-02-26 06:50 | PM.OBGYDC ---
Discharge Providers TANK INSPECTOR Date of Admission: 02/25/22 05:01 Date of Discharge: 02/26/22 Attending Provider at Admission: Jas Meade MD Attending Provider at Discharge: Jas Meade MD Primary Care Provider: Jas Meade MD Diagnoses at Discharge Discharge Diagnosis (1) Spontaneous vaginal delivery: Status: Acute Reason for Visit Reason for Visit: induction Hospital Course Hospital Course Patient presented to the hospital for induction. She was placed on Pitocin. She progressed to complete and had an unremarkable vaginal delivery. Her course is also been unremarkable. Her pain is been well controlled. She has breast-fed well. Her bleeding has been within normal limits. There have been no concerns. Information Peripartum Data: Delivery Method: Vaginal Physical Exam Narrative: The patient is alert. She appears comfortable. Her heart has a regular rate and rhythm with no murmurs appreciated. Lungs are clear to auscultation bilaterally. Her fundus is firm and below the umbilicus. Urinary Catheter Management: Chapa: Cath Placed During This Visit: yes Reason for Continuing Indwelling Catheter: Required Immobilization for Trauma or Surgery or Anesthesia Urinary Catheter Date of Insertion: 02/25/22 Urinary Catheter Time of Insertion: 06:00 History History History 1 Term 1 0 Miscarriages/Ectopic 0 Living Children 1 Discharge Data Studies Completed and Pending Laboratory Results WBC 12.5 10^3/uL (4.0-10.0) H 02/25/22 20:02 RBC 3.74 10^6/uL (4.1-5.3) L 02/25/22 20:02 Hgb 9.5 g/dL (11.5-15.3) L 02/25/22 20:02 Hct 30.0 % (37.0-47.0) L 02/25/22 20:02 MCV 80.2 fl (81-99) L 02/25/22 20:02 MCH 25.4 pg (28.0-34.0) L 02/25/22 20:02 MCHC 31.7 g/dL (30.0-36.0) 02/25/22 20:02 RDW 15.8 % (12.1-15.1) H 02/25/22 20:02 Plt Count 244 10^3/cmm (130-400) 02/25/22 20:02 MPV 10.9 fL (7.4-10.4) H 02/25/22 20:02 Neut % (Auto) 68.6 % 02/25/22 02:00 Lymph % (Auto) 21.6 % 02/25/22 02:00 Valencia % (Auto) 7.6 % 02/25/22 02:00 Eos % (Auto) 1.5 % 02/25/22 02:00 Baso % (Auto) 0.3 % 02/25/22 02:00 Neut # (Auto) 7.93 10^3/uL (1.8-7.7) H 02/25/22 02:00 Lymph # (Auto) 2.5 10^3/uL (0.8-4.8) 02/25/22 02:00 Valencia # (Auto) 0.9 10^3/uL (0.2-0.9) 02/25/22 02:00 Eos # (Auto) 0.2 10^3/uL (0.0-0.8) 02/25/22 02:00 Baso # (Auto) 0.0 10^3/uL (0.0-0.1) 02/25/22 02:00 Nucleated RBC % (auto) 0 % 02/25/22 02:00 Nucleated RBCs # 0.0 /100WBC 02/25/22 02:00 Vitals Last Vital Signs Temp 98.0 F 02/25/22 21:15 Pulse 60 02/26/22 04:50 Resp 16 02/26/22 04:50 BP 142/81 02/26/22 04:50 Pulse Ox 100 02/25/22 06:41 O2 Del Method 02/25/22 02:24 Discharge Plan Discharge Patient Disposition: Home Condition: Stable Prescriptions: New ibuprofen 800 mg Tablet 800 mg PO TID Qty: 45 0RF -U 106.5-1 mg Capsule 1 cap PO DAILY Qty: 100 3RF Discharge Orders: Discharge Order (Routine); Ordered 02/26/22 Ordered By: Jas Meade Referrals: Jas Meade MD [Primary Care Provider] - 6 Weeks Discharge Diet: Usual diet Discharge Activity: Resume usual activity Patient Instructions: Opioid Safety Discharge Attestations TANK INSPECTOR Time Spent in Discharge Care*: less than 30 min Coding Level of Care Code Acute Peripheral Vascular Tech for Chg Fwd Diagnoses Spontaneous vaginal delivery O80
[2022-02-26] MEDS: ibuprofen 800 mg tablet PO (08:44)
[2022-02-26] MEDS: docusate sodium 100 mg Capsule PO (08:45)
[2022-02-26] MEDS: prenatal vitamin Capsule 1 CAP PO (08:45)
[2022-02-26 09:48] VITALS: BP 154/98; PULSE 70; RESP 16; TEMP 36.6; TEMP 36.7
[2022-02-26 11:01] VITALS: BP 154/98; PULSE 70; RESP 16; TEMP 36.7; O2SAT 100
--- NOTE | 2022-02-26 16:22 | ANE.PACU2 ---
Inpatient post-anesthesia follow up: Airway intact: Yes Vital signs: Temperature 98.0 F Pulse Rate 70 Respiratory Rate 16 Blood Pressure 154/98 Pulse Oximetry 100 Oxygen Delivery Me thod Room Air Oxygen Flow Rate Fraction of Inspir ed Oxygen Hydration adequate: Yes Nausea and vomiting: No Pain level: 1 Mental status: Baseline Additional Comments: EMR review
== END 2022-02-26 10:41 | disposition home or self-care (01) | DRG 807 ==
LOC: OPOB 07:48 → OBGYN 08:00
PROVIDERS: Admitting Provider Family Medicine; PCP Family Medicine; Visit Provider Family Medicine
DX: O9A.22 Injury, poisoning and certain other consequences of external causes complicating childbirth (principal); Z37.0 Single live birth; S22.49XD Multiple fractures of ribs, unspecified side, subsequent encounter for fracture with routine healing; S32.2XXD Fracture of coccyx, subsequent encounter for fracture with routine healing; V89.2XXD Person injured in unspecified motor-vehicle accident, traffic, subsequent encounter; O69.81X0 Labor and delivery complicated by cord around neck, without compression, not applicable or unspecified; Z3A.39 39 weeks gestation of pregnancy
CPT/HCPCS: 12345; 36415; 51702; 59025; 59409; 85025; 85027; J2405; J2795

== ENCOUNTER → 2024-08-04 13:53 | Outpatient (BNVA) | payer SELFPAY | PROVIDERS: PCP Family Medicine | DX: J06.9 Acute upper respiratory infection, unspecified (principal); R05.9 Cough, unspecified | CPT/HCPCS: 87400 ==

== ENCOUNTER → 2024-11-22 13:32 | Outpatient (BNVA) | payer SELFPAY | PROVIDERS: PCP Family Medicine | DX: R39.9 Unspecified symptoms and signs involving the genitourinary system (principal); N92.6 Irregular menstruation, unspecified | CPT/HCPCS: 81000; 81025 ==

== ENCOUNTER 2024-11-25 17:17 | Emergency (ER) | payer SELFPAY ==
[2024-11-25 17:28] VITALS: BP 156/105; PULSE 108; RESP 17; TEMP 37.2; O2SAT 99; BMI 49.2
[2024-11-25 19:23] LABS: Bilirubin Urine Negative (Negative); Blood Urine 1+ (Negative); Glucose Urine UA Negative (Normal); Ketones Urine Negative (Negative); Leukocyte Esterase Urine 1+ (Negative); Nitrate Urine Negative (Negative); Protein Urine Negative (Negative); Specific Gravity, Urine 1.012 (1.005-1.030); Urine Appearance Clear (CLEAR)
[2024-11-25 19:31] LABS: Add Urine Microscopic? YES; Bacteria Urine None Seen /hpf; Squamous Epithelial Cell Urine 0-5 /hpf (0-5); WBC Urine 0-5 /hpf (0-5)
[2024-11-25 19:38] LABS: Urine Color Yellow (Yellow)
[2024-11-25 20:33] LABS: HCG Qualitative Urine. Negative (Negative)
[2024-11-25 20:37] LABS: Basophils # 0.1 10^3/uL (0.0-0.1); Basophils % 0.5 %; Eosinophils # 0.4 10^3/uL (0.0-0.8); Eosinophils % 4.1 %; Hematocrit 38.9 % (36-47); Lymphocytes # 1.6 10^3/uL (0.8-4.8); Lymphocytes % 17.5 %; Mean Corpuscular HGB Conc 30.1 g/dL (30-55); Mean Corpuscular Hemoglobin 21.8 pg (27-33); Mean Corpuscular Volume 72.6 fl (85-98); Monocytes # 0.8 10^3/uL (0.2-0.9); Monocytes % 9.1 %; Neutrophils # 6.25 10^3/uL (1.8-7.7); Neutrophils % 68.5 %; Nucleated Red Blood Cells % 0 %; Platelet Count 331 10^3/cmm (157-399); Red Blood Count 5.36 10^6/uL (3.85-5.65); Red Cell Distribution Width 17.9 % (12.1-15.1); White Blood Count 9.13 10^3/uL (3.29-11.43)
[2024-11-25 20:43] VITALS: BP 166/105; PULSE 111; O2SAT 95
[2024-11-25 20:56] LABS: HCG, Serum Qual Negative (Negative)
[2024-11-25] MEDS: ondansetron 2 mg/ML SDV 2 mL 4 MG IVP (20:57)
[2024-11-25 21:01] LABS: Alanine Aminotransferase 16 U/L (0-33); Albumin Level 4.5 g/dL (3.5-5.2); Alkaline Phosphatase 105 U/L (35-105); Anion Gap 18.1 (5-19); Aspartate Amino Transferase 19 U/L (0-32); Blood Urea Nitrogen 11 mg/dL (6-20); Calcium 9.6 mg/dL (8.5-10.5); Carbon Dioxide 24 mmol/L (22-29); Chloride 98 mmol/L (98-107); Globulin 3.5 g/dL (1.3-4.6); Glomerular Filtration Rate 81.6 mL/min (90-130); Glucose 94 mg/dL (65-115); Osmolality Calculated 281 mOsm/kg (285-295); Potassium 4.1 mmol/L (3.5-5.1); Sodium 136 mmol/L (136-145); Total Bilirubin 0.4 mg/dL (0.15-1.2)
[2024-11-25 21:07] VITALS: PULSE 107; O2SAT 96
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
[2024-11-25 21:34] VITALS: BP 146/94; PULSE 105; O2SAT 92
== END 2024-11-25 21:35 | disposition home or self-care (01) ==
PROVIDERS: Student in an Organized Health Care Education/Training Program; Emergency Provider Emergency Medicine; PCP Family Medicine
DX: N91.0 Primary amenorrhea (principal); B34.9 Viral infection, unspecified
CPT/HCPCS: 80053; 81001; 81025; 84703; 85025; 96374; 99284; J2405

== ENCOUNTER → 2024-12-14 08:05 | Outpatient (BNVA) | payer MEDICAID, SELFPAY | PROVIDERS: PCP Family Medicine; Visit Provider Obstetrics & Gynecology | DX: N92.6 Irregular menstruation, unspecified (principal) | CPT/HCPCS: 76830 ==

== ENCOUNTER → 2024-12-29 16:35 | Outpatient (BNVA) | payer MEDICAID, SELFPAY | PROVIDERS: PCP Family Medicine; Visit Provider Obstetrics & Gynecology | DX: Z12.4 Encounter for screening for malignant neoplasm of cervix (principal) | CPT/HCPCS: 87624 ==

== ENCOUNTER → 2025-03-03 08:26 | Outpatient (BNVA) | payer SELFPAY | PROVIDERS: PCP Family Medicine; Visit Provider Family Medicine | DX: D50.9 Iron deficiency anemia, unspecified (principal); Z13.6 Encounter for screening for cardiovascular disorders; R73.9 Hyperglycemia, unspecified | CPT/HCPCS: 80061; 82728; 83036; 83550; 84443; 85025 ==